=== PATIENT | male | born 1965 | race Caucasian/White ===

== ENCOUNTER 2024-10-28 14:17 | Emergency (ER) | payer SELFPAY ==
--- OUTSIDE RECORDS SUMMARY | 2024-10-28 14:20 | XMS REPORT | Continuity of Care Document ---
Author Name Unknown Address [address] [facility] Jose Miguel. [address] [place] [address] [facility] [place] [facility] [address] [facility] Jose Miguel. [address] [place] [address] Care Team Providers Care Kiln Transfer Operator Name Role Phone Prosper Renee Attending Clinician Unavailable López Attending Clinician Unavailable Prosper Renee Admitting Clinician Unavailable Physician, No Primary or Family Admitting Clinic george Unavailable López Admitting Clinician Unavailable Payers Payer Name Policy Type Policy Number Effective Date Expirati on Date Source Allergies, Adverse Reactions, Alerts Allergy Name Allergy Type Status Severity Reaction(s) Onset Date Inactive Date Treating Clinician Comments Source No Known Allergie s DA Active U 02-26 00:00: 00 [facility] No Known Allergie s DA Active U 02-26 00:00: 00 [facility] Procedures Procedure Date / Time Performed Performing Clinicia n Source [id number] 2021-02-27 00:00:00 [email or web address] [facility] Francie [facility] [place] [id number] 2021-02-27 00:00:00 [email or web address] [facility] Francie [facility] [place] [id number] 2021-02-27 00:00:00 [email or web address] [facility] Francie [facility] [place] [id number] 2021-02-27 00:00:00 ZAFNA.[email or web address] [facility] [place] Encounters Start Date/Time End Date/Time Encounter Type Admission Type Attending Clinicians Care Facility Care Department Encounter ID Source 2021-02-27 00:07:00 2021-02-28 22:00:00 Emergency EM Prosper Renee HCATB MED [id number] [facility] [place] 2021-02-27 11:16:00 2021-02-27 11:16:00 Outpatient Prosper Renee HCANW REF [id number] [facility] [address] 2020-09-19 11:07:00 2020-09-19 11:07:00 Outpatient Alvarez_R VFP VFP [id number] Results Test Description Test Time Test Comments Results Result Co mments Source COVID 19 Asymptomatic IH [id number] 23:44:00* Test Item Value Reference Range Interpretation Comme nts COVID 19 Asymptomatic IH AG (test code = COVNONPUIAG) NEGATIVE Negative NEGATIVE RESULTS SHOULD BE TREATED PRESUMPTIVE ANDCONFIRMED WTIH A MOLECULAR ASSAY, IF NECESSARY FOR PATIENTMANAGEMENT. NEGATIVE RESULTS DO NOT RULE OUT COVID-19 ANDSHOULD NOT BE USED THE SOLE BASIS FOR TREATMENT ORPATIENT MANAGEMENT DECISIONS, INCLUDING INFECTION CONTROLDECISIONS. NEGATIVE RESULTS SHOULD BE CONSIDERED IN THECONTEXT OF A PATIENT'S RECENT EXPOSURES, HISTORY AND THEPRESENCE OF CLINICAL SIGNS AND SYMPTOMS CONSISTENT WITHCOVID-19. - CT ABD PELVIS [id number] 23:10:00 [facility] : 1965 Sex: MPatient Name: BELÉN CHACON Unit No: [id number] EXAMS: CPT: [id number] CT ABD PELVIS W/CONT [address] CT ABDOMEN AND PELVIS WITH IV CONTRAST: CLINICAL HISTORY: Abdominal pain COMPARISON: None. TECHNIQUE: Axial CT imaging of the abdomen and pelvis was performed with IV contrast. Coronal and sagittal reformatted images are submitted. FINDINGS: The liver appears normal. The spleen appears normal. The pancreas has a normal appearance without mass or inflammation. The kidneys appear normal. No adrenal abnormalities are seen. Bowel loops are normal in caliber. There is no free fluid in the abdomen or pelvis. No free air is seen. There is no abdominal or retroperitoneal mass. The appendix is thickened with periappendiceal inflammation consistent with acute appendicitis. There is no evidence of perforation.. The abdominal aorta is normal in caliber. Osseous structures appear normal. The lung bases are clear. No pleural or pericardial effusion seen. IMPRESSION: Acute appendicitis. No evidence of perforation. COMMUNICATION: Findings conveyed to Dr. Patton by telephone at 11:00 PM. DLP: 431.84 mGy-cm IV Contrast: [address] dose optimization is achieved for this examination by the use of a CT protocol in accordance with ACR practice standards and adherence to chemistry associate's recommendations with automated exposure control. FOR INTERNAL CODING PURPOSES O NLY RESULT CODE: CVRMD at 2310 Reported and signed by: Artur Loving MD Name: BELÉN CHACON [facility] Emergency Dept [place]: [place] [id number] [facility] : 1965 Age: 55 Sex: [place] [address] Loc: YIFAN Exam Date: 02/26/2021 Status: REG PH: [phone] FAX: PAGE 1 Signed Report (CONTINUED) Patient Name: BELÉN CHACON Unit No: [id number] EXAMS: CPT: [id number] CT ABD PELVIS W/CONT 47104 (Continued) CC: Kun Patton MD Technologist: APOLA FLORES CTDI: 7.85 DLP: 431.84 Trscr Dt/Tm: 02/26/2021 (2310) by:[email or web address] Orig Print D/T: S: 02/26/2021 (2313) BATCH NO: N/A Name: BELÉN CHACON Emergency Dept [place]: [place] [id number] [facility] : 1965 Age: 55 Sex: [place] [address] Loc: YIFAN Exam Date: 02/26/2021 Status: REG ER PH: [phone] FAX: PAGE 2 Signed ReportURINALYSIS DIPSTICK [id number] 22:07:00* Test Item Value Reference Range Interpretation Comme nts UA COLOR (test code = COLU) Yellow YELLOW UA APPEARANCE (test code = APPU) Clear CLEAR UA GLUCOSE DIPSTICK (test code = DGLUU) NEGATIVE MG/AL NEGATIVE UA BILIRUBIN DIPSTICK (test code = BILU) NEGATIVE NEGATIVE UA KETONE DIPSTICK (test code = KETU) NEGATIVE MG/DL NEGATIVE UA SPECIFIC GRAVITY (test code = SGU) 1.020 1.000-1.030 UA BLOOD DIPSTICK (test code = CANDIDO) NEGATIVE NEGATIVE UA PH DIPSTICK (test code = REJI) 7.5 4.5-8.5 UA PROTEIN DIPSTICK (test code = PROU) NEGATIVE NEGATIVE UA UROBILINOGEN DIPSTICK (test code = URO) 2.0 EU/dL See_Comment A [Automated mymission2a ge] The system which generated this result transmitted reference range: <=1.0. The reference range was not used to interpret this result as normal/abnormal. UA NITRITE DIPSTICK (test code = SHANDA) NEGATIVE NEGATIVE UA LEUKOCYTE ESTERASE DIPSTICK (test code = LEUU) NEGATIVE NEGATIVE TROPONIN I [id number] 21:57:00* Test Item Value Reference Range Interpretation Comme nts TROPONIN I RAPID (test code = TROPIRAP) 0.01 ng/mL 0.00-0.08 N ISTAT TROPONIN I CRITERIA0.00-0.08 ng/mL - Negative>0.08 ng/mL - Positive The use of serial sampling and testing protocol is arecommended practice.An elevated troponin level alone is often not sufficient fordiagnosis of myocardial infarction. Troponin results obtained by different assays may vary.Evaluation of the extent of myocardial damage based onincrease of troponin would be valid only if similarmethodology is used. [id number] 21:40:00* Test Item Value Reference Range Interpretation Comme nts AMYLASE (test code = GEMA) 26 U/L 14-97 N COMPREHENSIVE METABOLIC [id number] 21:39:00* Test Item Value Reference Range Interpretation Comme nts SODIUM POC (test code = NAP) mmol/L 138-146 POTASSIUM POC (test code = KP) mmol/L 3.5-4.9 CHLORIDE POC (test code = CLP) mmol/L 98-109 N CO2 POC (test code = CO2P) mmol/L 24-29 GLUCOSE POC (test code = GLUP) MG/DL 70-105 BUN POC (test code = BUNP) mg/dL 8-26 N CREATININE POC (test code = CREATP) mg/dL 0.6-1.3 N GLOMERULAR FILTRATION RATE P OC (test code = GFRP) 100 >60 TOTAL PROTEIN (test code = PROT) g/dL 6.4-8.1 ALBUMIN (test code = ALB) g/dL 3.3-5.5 N CALCIUM (test code = CA) mg/dL 8.8-10.5 N BILIRUBIN TOTAL (test code = BILT) mg/dL 0.2-1.6 SGOT/AST (test code = AST) IU/L 11-38 N SGPT/ALT (test code = ALT) IU/L 10-47 N ALKALINE PHOSPHATASE (test c ode = ALKP) IU/L 42-141 H COMPREHENSIVE METABOLIC [id number] 21:39:00* Test Item Value Reference Range Interpretation Comme nts SODIUM POC (test code = NAP) 137 mmol/L 138-146 L POTASSIUM POC (test code = KP) 4.2 mmol/L 3.5-4.9 N CHLORIDE POC (test code = CLP) 107 mmol/L 98-109 N CO2 POC (test code = CO2P) 30 mmol/L 24-29 H GLUCOSE POC (test code = GLUP) 145 MG/DL 70-105 H BUN POC (test code = BUNP) 15 mg/dL 8-26 N CREATININE POC (test code = CREATP) 0.8 mg/dL 0.6-1.3 N GLOMERULAR FILTRATION RATE P OC (test code = GFRP) 100 >60 TOTAL PROTEIN (test code = PROT) 7.3 g/dL 6.4-8.1 N ALBUMIN (test code = ALB) 4.0 g/dL 3.3-5.5 N CALCIUM (test code = CA) 9.1 mg/dL 8.8-10.5 N BILIRUBIN TOTAL (test code = BILT) 0.7 mg/dL 0.2-1.6 N SGOT/AST (test code = AST) 25 IU/L 11-38 N SGPT/ALT (test code = ALT) 26 IU/L 10-47 N ALKALINE PHOSPHATASE (test c ode = ALKP) 142 IU/L 42-141 H CBC W/AUTO [id number] 21:28:00* Test Item Value Reference Range Interpretation Comme nts WHITE BLOOD CELL (test code = WBC) 17.9 x10 3/u 4.8-10.8 H RED BLOOD CELL (test code = RBC) 4.76 x10 6/uL 4.70-6.10 N HEMOGLOBIN (test code = HGB) 14.8 g/dL 13.0-17.0 N HEMATOCRIT (test code = HCT) 43.8 % 42.0-52.0 N MEAN CELL VOLUME (test code = MCV) 92 fL 80-99 N MEAN CELL HGB (test code = MCH) 31.1 pg 27.0-31.0 H MEAN CELL HGB CONCENTRATION (test code = MCHC) 33.8 g/dL 33.0-37.0 N RED CELL DISTRIBUTION WIDTH (test code = RDW) 13.0 % 11.5-14.5 N PLATELET COUNT (test code = PLT) 256 x10 3/uL 130-400 N MEAN PLATELET VOLUME (test code = MPV) 9.2 fL 9.4-12.4 L NEUTROPHIL % (test code = NT%) 88.4 % 37.0-80.0 H LYMPHOCYTE % (test code = LY%) 5.8 % 10.0-50.0 L MIXED % (test code = MX%) 5.8 % 0.0-11.0 N The Mixed Cell percent and Mixed Cell absolute numberinclude monocytes, eosinophils and basophils. NEUTROPHIL # (test code = NT#) 15.9 x10 3/uL 2.0-6.9 H LYMPHOCYTE # (test code = LY#) 1.0 x10 3/uL 0.9-4.1 N MIXED # (test code = MX#) 1.0 10e3/mm3 0.2-1.1 N Notes Date/Time Note Provider Source 2021-02-27 09:01:00 [id number] [place] [address] PATIENT NAME: BELÉN CHACON ADMIT DATE: 02/27/21 ACCOUNT NO: [id number] ROOM NO: T.[facility] AGE: 55 REPORT TYPE: OPERATIVE REPORT SEX: M ADMITTING PHYSICIAN: Prosper Renee MD ATTENDING PHYSICIAN: Prosper Renee MD OPERATION DATE: 02/27/2021 PREOPERATIVE DIAGNOSIS: Acute appendicitis. POSTOPERATIVE DIAGNOSES: Acute appendicitis and ventral hernia and a right groin infection. PROCEDURE: Laparoscopic appendectomy and laparoscopic ventral hernia repair and an I and D and debridement of right groin infection. SURGEON: Geoffrey Nunez MD SENIOR RISK MANAGER: ANESTHESIA: General endotracheal. ESTIMATED BLOOD LOSS: Approximately 10 mL. SPECIMEN: Appendix and cultures and debrided tissue. POSTOPERATIVE CONDITION: Stable. PROCEDURE IN DETAIL: The patient was brought in the operating room and placed in supine position. The anterior abdominal wall was prepped with chlorhexidine and draped in sterile fashion. A Veress needle was inserted in the left lower quadrant. Abdomen was insufflated to 15 mmHg pressure. Once this was done, the Veress needle was removed and 5-mm trocar was inserted in the same site. A camera was inserted in the abdomen. The patient noted to have a ventral hernia, so I inserted a 12-mm trocar superior to the umbilicus. This was followed by insertion of 5-mm suprapubic trocar. The patient was placed in the Trendelenburg position with the right side up. The patient had some unusual amount of lower abdominal adhesions, this involved the sigmoid colon and the anterior abdominal wall and also the terminal ileum and the anterior abdominal wall making exposure to the cecum difficult. I placed another 5-mm trocar in the right lower quadrant. I had to dissect around the cecum. The patient had a retrocecal appendix as well which further made things difficult and the patient was morbidly obese. Once the appendix was isolated and identified, I had to find the tip, I found the tip and then was able to dissect the mesoappendix with a Harmonic scalpel. Once the base of the appendix was isolated, it was then divided with an Endo-TIFFANY stapler, placed in a specimen bag and removed through the umbilical wound. It should be noted that very early in the case, I saw an PATIENT NAME: BELÉN CHACON area that looked like the appendix and I stapled this; however, this just ended up being a large piece of epiploic fat. After removing the appendix, the right lower quadrant was irrigated and suctioned. The omentum was brought down the right lower quadrant. The fascia of the trocar site was closed with 0 Vicryl stitch with help of a suture passer. I then made a separate incision directly over the hernia defect with #11 blade scalpel. I closed the defect with a #1 Ethibond stitch with help of a suture passer. After this was done, gas turned off and evacuated from the abdomen. Trocars removed. Wounds were irrigated with Betadine and closed with 3-0 Monocryl subcuticular stitches and dressed with Steri-Strips, 2 x 2's, and tape. I then performed an I and D with #11 blade scalpel at the right groin abscess. I debrided the edges with electrocautery. Cultures were taken. Bleeding and oozing was controlled with electrocautery. Wound was irrigated with a combination of Betadine, peroxide and packed with half-inch packing soaked in Betadine, peroxide; dressed with 4 x 4's and tape. The patient was brought to the recovery room in stable condition having tolerated his procedure well. Dictated By: Geoffrey Nunez MD WT: OP:GRICELDA/SHANNONSEREG Conf#: [id number]/DID#: [id number] Authenticated by Geoffrey Nunez MD On 03/18/2021 11:09:21 AM at 1109 PATIENT NAME: BELÉN CHACON [facility] 2021-02-26 21:20:00 [facility] EMERGENCY PROVIDER REPORT REPORT#:[id number] REPORT STATUS: Signed DATE:02/26/21 TIME: 2119 PATIENT: BELÉN CHACON UNIT #: [id number] ROOM: [facility] BED: A AGE: 55 SEX: M PCP PHYS: Prosper Renee MD SERVICE AUTHOR: Kun Patton MD * ALL edits or amendments must be made on the electronic/computer document * HPI-Abd Pain M 40 and Over General Confirmed Patient Yes Patient Type New patient Initial Greet Date/Time 02/26/212100 Presentation Chief Complaint Abdominal pain Hx Obtained From Patient Sudden in Onset? No Onset Occurred Today Symptom Duration Waxes and wanes Progression since Onset Waxes and wanes Caused by No trauma by history Location Epigastric, Periumbilical Quality Cramping Migration/Movement None Severity: Current Pain level 8 out of 10 Free Text HPI Notes Free Text HPI Notes 55-year-old male patient smokes approximately 1-1/2 packs of cigarettes a day. Patient states he ate a hotdog around 1230 this afternoon complaining of mid and periumbilical pain which started around 1 in the afternoon. Patient states he described the pain is severe. No black or bloody stool. No chest pain no shortness of breath. Risk-Abd Pain M 40 and Over )( Abdominal Aortic Aneurysm Risk factors reviewed, Risk factors N/A Review of Systems ROS Statements All systems rev neg except as marked. Complete sys rev neg except as marked. Focused Review of Systems Constitutional Denies: Chills, Fatigue, Fever, Lethargy, Malaise, Recent wt loss, Weakness - generalized. Respiratory Denies: Cough, non-productive, Cough, productive, Dyspnea on exertion, Hemoptysis, Parox nocturnal dyspnea, Pleuritic pain, Shortness of breath, Wheezing. Cardiovascular Denies: Chest pain, Dyspnea on exertion, Edema, Orthopnea, Palpitations, Parox nocturnal dyspnea, Syncope. GI Reports: Abdominal pain. Denies: Anorexia, Belching, Bloody/tarry stool, Constipation, Diarrhea, Dysphagia, Hematemesis, Hematochezia, Mucousy stool, Melena, Nausea, Rectal pain, Vomiting. Musculoskeletal Denies: Back pain, Extremity pain, Extremity swelling, Joint pain, Joint swelling, Lumbar pain, Myalgia, Neck pain, Thoracic pain. Past Medical History - Adult Stated Complaint ABDOMINAL PAIN Allergies Coded Allergies: No Known Allergies (02/26/21) Past Medical History: Reports: Hypertension. Smoking status: Smoking status for patients 13 years old or older: Current every day smoker Packs per day: 1.5 Physical Exam Vital Signs Vital Signs First Documented: Result Date Time Pulse Ox 97 02/26 2113 B/P 220/92 02/26 2113 B/P Mean 134 02/26 2113 O2 Delivery Room air 02/26 2113 Temp 36.8 02/26 2113 Pulse 72 02/26 2113 Resp 20 02/26 2113 Last Documented: Result Date Time Pulse Ox 100 02/26 2342 B/P 199/91 02/26 2342 B/P Mean 127 02/26 2342 O2 Delivery Room air 02/26 2342 Temp 36.7 02/26 2342 Pulse 78 02/26 2342 Resp 18 02/26 2342 Review of Vital Signs Reviewed Basic Physical Exam Basic PE HEAD: Atraumatic/NC, EYES: PERRL, conj clear, ENT: Membranes moist, NECK: Supple Focused PE General/Const General/Const Awake Distress/Hydration Distress moderate. MS Head Head Normocephalic Eyes Eyes Atraumatic, PERRL, EOMI, No nystagmus Ears/Nose/Throat Ears/Nose/Throat Airway patent, Mucous membranes moist Resp/Chest Respiratory/Chest Atraumatic, Breath sounds NL, Breath sounds = bilat, No respiratory distress, No rales Cardiovascular Cardiovascular Heart rate NL, Regular rhythm, Heart sounds NL, No gallop, No murmurs, No rubs Abdomen/GI Abdomen/GI Atraumatic, Soft, Non-tender, McBurney's non-tender, No guarding, No rebound, BS normoactive Tenderness/Guarding/Rebound Tender periumbilical. MS Back Back Atraumatic, Inspection NL, Full range of motion, Painless range of motion, Non-tender, No midline vertebral tend Skin Skin Atraumatic, Color NL, No rash, Warm, Dry Neurologic Neurologic Oriented X3, Speech NL, No motor deficits, No sensory deficits, CN II - XII intact, Reflexes equal bilat Interpretation Diagnostics Lab Results Interpretation Results Laboratory Tests 02/26/212123: [Embedded Image Not Available] Laboratory Tests: 02/26 Chemistry POC Sodium (138 - 146 mmol/L) 137 L POC Potassium (3.5 - 4.9 mmol/L) 4.2 POC Chloride (98 - 109 mmol/L) 107 POC Total CO2 (24 - 29 mmol/L) 30 H POC BUN (8 - 26 mg/dL) 15 POC Creatinine (0.6 - 1.3 mg/dL) 0.8 Estimated GFR (MDRD) (>60) 100 POC Glucose (70 - 105 MG/DL) 145 H Calcium (8.8 - 10.5 mg/dL) 9.1 Total Bilirubin (0.2 - 1.6 mg/dL) 0.7 AST (11 - 38 IU/L) 25 ALT (10 - 47 IU/L) 26 Total Alk Phosphatase (42 - 141 IU/L) 142 H Rapid Troponin I (0.00 - 0.08 ng/mL) 0.01 Total Protein (6.4 - 8.1 g/dL) 7.3 Albumin (3.3 - 5.5 g/dL) 4.0 Amylase (14 - 97 U/L) 26 Hematology WBC (4.8 - 10.8 x10 3/u) 17.9 H RBC (4.70 - 6.10 x10 6/uL) 4.76 Hgb (13.0 - 17.0 g/dL) 14.8 Hct (42.0 - 52.0 %) 43.8 MCV (80 - 99 fL) 92 MCH (27.0 - 31.0 pg) 31.1 H MCHC (33.0 - 37.0 g/dL) 33.8 RDW (11.5 - 14.5 %) 13.0 Plt Count (130 - 400 x10 3/uL) 256 MPV (9.4 - 12.4 fL) 9.2 L Neut % (Auto) (37.0 - 80.0 %) 88.4 H Lymph % (Auto) (10.0 - 50.0 %) 5.8 L Mixed Cells % (Auto) (0.0 - 11.0 %) 5.8 Neut # (Auto) (2.0 - 6.9 x10 3/uL) 15.9 H Lymph # (Auto) (0.9 - 4.1 x10 3/uL) 1.0 Mixed Cells # (0.2 - 1.1 10e3/mm3) 1.0 Urines Urine Color (YELLOW) Yellow Urine Appearance (CLEAR) Clear Urine pH (4.5 - 8.5) 7.5 Ur Specific [place] (1.000 - 1.030) 1.020 Urine Protein (NEGATIVE) NEGATIVE Urine Glucose (UA) (NEGATIVE MG/AL) NEGATIVE Urine Ketones (NEGATIVE MG/DL) NEGATIVE Urine Blood (NEGATIVE) NEGATIVE Urine Nitrite (NEGATIVE) NEGATIVE Urine Bilirubin (NEGATIVE) NEGATIVE Urine Urobilinogen (<=1.0 EU/dL) 2.0 H Ur Leukocyte Esterase (NEGATIVE) NEGATIVE 02/26 2323 Serology SARS-CoV-2 Ag (Rapid) (Negative) NEGATIVE Recent Impressions: CAT SCAN - CT ABD PELVIS W/CONT 02/26 2230 Report Impression - Status: SIGNED Entered: 02/26/20212312 IMPRESSION: Acute appendicitis. No evidence of perforation. COMMUNICATION: Findings conveyed to Dr. Patton by telephone at 11:00 PM. DLP: 431.84 mGy-cm IV Contrast: [address] dose optimization is achieved for this examination by the use of a CT protocol in accordance with ACR practice standards and adherence to chemistry associate's recommendations with automated exposure control. FOR INTERNAL CODING PURPOSES ONLY RESULT CODE: CVRMD Impression By: [email or web address] - Artur Loving MD Lab Statement Laboratory studies reviewed and considered in the medical decision-making. Imaging Statement Radiographic studies reviewed and considered in the medical decision-making. Lab Imaging Statement Laboratory radiographic studies reviewed and considered in the medical decision-making. ECG #1 Interpretation Text/Dict Note NSR, no acute ST elevations or depressions ECG Documented in MUSE Yes Date 02/26/21 Time 2130 Interpreted by and reviewed by me, ED physician NL ECG Interpretation Normal rate, Normal sinus rhythm, No acute ischemic changes, No STEMI, Normal QRS, Normal ST waves, Normal T waves, Normal axis, Normal intervals Re-Evaluation MDM )( Re-Evaluation/Progress #1 )( Re-Eval Status Improved ED Course Medication(s) Ordered Medication(s) Ordered: Anti-Infective Agents Sig/Didier Start time Last Medication Dose Route Stop Time Status Admin Piperacillin Sod/ 3.375 GM Q6HR 02/27 0000 DC Tazobactam Sod IV 03/06 2359 Sodium Chloride 100 ML Piperacillin Sod/ 3.375 GM X1ED STA 02/26 2307 DC 02/26 Tazobactam Sod IV 02/26 2336 2315 Sodium Chloride 100 ML Central Nervous System Agents Sig/Didier Start time Last Medication Dose Route Stop Time Status Admin Acetaminophen 650 MG Q4H PRN PRN 02/27 0010 AC PO 02/27 2357 Acetaminophen/ 2 TAB X1ED STA 02/26 2202 DC 02/26 Codeine Phosphate PO 02/26 Morphine Sulfate 4 MG X1ED STA 02/26 2119 DC 02/26 IV 02/27 2120 212 Diagnostic Agents Sig/Didier Start time Last Medication Dose Route Stop Time Status Admin Iopamidol 100 ML .STK-MED ONE 02/26 2357 DC 02/26 IV 02/26 2358 2357 Electrolytic, Caloric, And Dick Sig/Didier Start time Last Medication Dose Route Stop Time Status Admin Sodium Chloride 1,000 ML .Q8H 02/27 0010 AC IV 02/27 2357 Sodium Chloride 100 ML .STK-MED ONE 02/26 2357 DC 02/26 IV 02/26 2358 2357 Sodium Chloride 1,000 ML X1ED STA 02/26 2320 DC 02/26 IV 02/26 232 2325 Gastrointestinal Drugs Sig/Didier Start time Last Medication Dose Route Stop Time Status Admin Ondansetron HCl 4 MG Q4H PRN PRN 02/27 0010 AC IV 02/27 235 Famotidine 20 MG X1ED STA 02/26 2119 AC 02/26 Sodium Chloride 10 ML IV 02/27 Ondansetron HCl 4 MG X1ED STA 02/26 2119 DC 02/26 IV 02/26 Patient Discharge Departure Vital Signs/Condition Vital Signs First Documented: Result Date Time Pulse Ox 97 02/26 2113 B/P 220/92 02/26 2113 B/P Mean 134 02/26 2113 O2 Delivery Room air 02/26 2113 Temp 36.8 02/26 2113 Pulse 72 02/26 2113 Resp 20 02/26 2113 Last Documented: Result Date Time Pulse Ox 100 02/26 2342 B/P 199/91 02/26 2342 B/P Mean 127 02/26 2342 O2 Delivery Room air 02/26 2342 Temp 36.7 02/26 2342 Pulse 78 02/26 2342 Resp 18 02/26 2342 All vital signs available at the time of this entry have been reviewed. Condition Stable, Improved Clinical Impression Clinical Impression Primary Impression: Acute appendicitis Time of Impression 2312 Disposition Decision Admit Admit Physician Name Prosper Renee MD Admit Physician Primary Care Physician Request Time 2329 Request Date 02/26/21 )( Admission Accepts Yes )( Accepted Time 2345 )( Accepted Date 02/26/21 Call Information will see patient Discharge/Care Plan Counseled Regarding Diagnosis, Lab results, Imaging studies, Need for admission (Auto) Prescriptions Current Visit Scripts Hydrocodone/Apap ([place] 5/325) 1 TAB PO Q4H PRN Pain Hydrocodone/Apap ([place] 5/325) 1 TAB PO Q4H PRN Pain #30 TAB Sulfamethoxazole/Tmp (Bactrim Ds 800/160 Mg) 1 TAB PO Q12H Sulfamethoxazole/Tmp (Bactrim Ds 800/160 Mg) 1 TAB PO Q12H #20 TAB at 0627 [facility] #:[id number] END OF REPORT [facility]
[2024-10-28] MEDS ORDERED: LIDOCAINE 2% INJ, 20 mL 0 ML ONE (16:26)
[2024-10-28] MEDS ORDERED: LIDOCAINE 2% W/EPI 1:200,000 MPF 20 ML VIAL IM ONE (16:33)
--- NOTE | 2024-10-28 17:23 | EDPHYS ---
Physician Documentation [facility] Name: Eran Felix Age: 59 yrs Sex: Male : 1965 Arrival Date: 10/28/2024 Time: 14:17 Bed 12 Private MD: ED Physician Alexis Wiley HPI: 10/28 15:00 This 59 yrs old Male presents to ER via Ambulatory with complaints of Cyst. cp 15:00 The patient or guardian complains of cyst. cp 15:00 The complaints affect the right tricep. Onset: The symptoms/episode began/occurred cp gradually. Associated signs and symptoms: Pertinent positives: pain, swelling, warmth, purulent drainage and erythema, Pertinent negatives: fever. Severity of symptoms: in the emergency department the symptoms have improved, mildly. Historical: - Allergies: 14:46 No Known Allergies; ld1 - Home Meds: 14:46 None [Active]; ld1 - PMHx: 14:46 None; ld1 - PSHx: 14:46 Appendectomy; ld1 - Immunization history:: Adult Immunizations up to date. - Infectious Disease History:: Denies. - Social history:: Smoking status: Patient reports the use of cigarette tobacco products, smokes one-half pack cigarettes per day. ROS: 15:05 Skin: Positive for of the right tricep, cyst, cp 15:05 Constitutional: Negative for body aches, chills, fever, poor PO intake, cp 15:05 Cardiovascular: Negative for chest pain, 15:05 Respiratory: Negative for cough, shortness of breath, wheezing, 15:05 Abdomen/GI: Negative for abdominal pain, vomiting, diarrhea, constipation, 15:05 Neuro: Negative for altered mental status, numbness, weakness, 15:05 All other systems are negative, Exam: 15:10 Constitutional: The patient appears in no acute distress, alert, awake, non-toxic, well cp developed, well nourished, 15:10 Head/Face: Normocephalic, atraumatic. cp 15:10 Chest/axilla: Inspection: normal, 15:10 Cardiovascular: Rate: normal, 15:10 Respiratory: the patient does not display signs of respiratory distress, Respirations: normal, no retractions, labored breathing, is not present, Breath sounds: are clear throughout, no decreased breath sounds, no stridor, no wheezing, 15:10 Abdomen/GI: Inspection: abdomen appears normal, 15:10 Musculoskeletal/extremity: Extremities: noted in the right tricep: 1.5 cm opening with mild purulent drainage, mild surrounding erythema, ROM: full active range of motion, in the right arm, Pulses: noted to be 2+ in the right radial artery, the right arm Sensation intact. 15:10 Neuro: Orientation: to person, place \T\ time. Mentation: is normal, Motor: moves all fours, strength is normal, Vital Signs: 14:47 BP 155 / 79; Pulse 62; Resp 18; Temp 98.3(TE); Pulse Ox 97% on R/A; Weight 67.13 kg; ld1 Height 6 ft. 1 in. ; Pain 3/10; 14:47 Body Mass Index 19.53 (67.13 kg, 185.42 cm) ld1 14:47 Pain Scale: Adult ld1 Procedures: 17:20 I \T\ D: Incision and drainage was performed for an abscess of the right tricep Prepped cp with Betadine, Anesthetized with ml's 2% Lidocaine with epinephrine. 6 ml's 2% Lidocaine with epinephrine. Drained small amount purulent fluid. Packed with iodoform gauze, Dressing: sterile 4x4 gauze, the patient tolerated the procedure well, curved hemostats used to explore cyst. MDM: 14:53 Medical Screening Exam initiated cp 17:22 Data reviewed: vital signs, nurses notes, and as a result, I will discharge patient. cp 17:22 Differential diagnosis: abscess, cyst, cellulitis. I considered the following discharge cp prescriptions or medication management in the emergency department Medications were administered in the Emergency Department. See MAR. Counseling: I had a detailed discussion with the patient and/or guardian regarding the historical points, exam findings, and any diagnostic results supporting the discharge/admit diagnosis, the need for outpatient follow up, a general surgeon, to return to the emergency department if symptoms worsen or persist or if there are any questions or concerns that arise at home. Response to treatment: the patient's symptoms have mildly improved after treatment, and as a result, I will discharge patient. 10/28 14:47 Order name: I\T\D Setup; Complete Time: 16:31 cp 10/28 17:20 Order name: Wound dressing; Complete Time: 17:39 cp Administered Medications: 16:40 Drug: Lidocaine Infiltration (2 %) 20 ml Infiltration once; with epinephrine Route: hb Infiltration; 17:39 Follow up: Response: No adverse reaction hb Disposition: 10/29 16:54 Chart complete. cp Disposition Summary: 10/28/24 17:22 Discharge Ordered Notes: Location: Home cp Problem: new cp Symptoms: have improved cp Condition: Stable cp Diagnosis - Epidermal cyst - right upper arm cp - Cellulitis of right upper limb cp Followup: cp - With: Willem Sliva MD - When: 2 - 3 days - Reason: Wound Recheck Discharge Instructions: - Discharge Summary Sheet cp - Cellulitis, Adult cp - Epidermoid Cyst Removal cp Forms: - Medication Reconciliation Form cp - Antibiotic Education cp - Prescription Opioid Use cp - Patient Portal Instructions cp - Leadership Thank You Letter cp Prescriptions: - Doxycycline Monohydrate 100 mg Oral Tablet - take 1 tablet ORAL route every 12 hours for 10 days; 20 tablet; Refills: 0, cp Product Selection Permitted Signatures: Louie Lehman PA PA cp Romana Puente RN RN Liliana Antonio RN RN ld1 Corrections: (The following items were deleted from the chart) 16:53 10/28 17:50 I \T\ D: Incision and drainage was performed for an abscess of the right cp tricep Prepped with Betadine, Anesthetized with ml's 2% Lidocaine with epinephrine. 6 ml's 2% Lidocaine with epinephrine. Drained small amount purulent fluid. Packed with iodoform gauze, Dressing: sterile 4x4 gauze, the patient tolerated the procedure well, curved hemostats used to explore cyst. cp
--- NOTE | 2024-10-28 17:23 | ER ---
Nurse's Notes [facility] Name: Eran Felix Age: 59 yrs Sex: Male : 1965 Arrival Date: 10/28/2024 Time: 14:17 Bed 12 Private MD: Diagnosis: Epidermal cyst-right upper arm;Cellulitis of right upper limb Presentation: 10/28 14:47 Chief complaint: Patient states: Abscess to back of right upper arm - open and ld1 draining. Coronavirus screen: At this time, the client does not indicate any symptoms associated with coronavirus-19. Ebola Screen: No symptoms or risks identified at this time. Initial Sepsis Screen: Does the patient meet any 2 criteria? No. Patient's initial sepsis screen is negative. Does the patient have a suspected source of infection? No. Patient's initial sepsis screen is negative. Risk Assessment: Do you want to hurt yourself or someone else? Patient reports no desire to harm self or others. Onset of symptoms was October 28, 2024. 14:47 Method Of Arrival: Ambulatory ld1 14:47 Acuity: CHANNING 3 ld1 Triage Assessment: 14:46 General: Appears in no apparent distress. comfortable, Behavior is calm, cooperative, ld1 appropriate for age. Pain: Complains of pain in posterior aspect of right shoulder and right tricep Pain does not radiate. Pain currently is 8 out of 10 on a pain scale. Quality of pain is described as throbbing, Pain began suddenly. EENT: No signs and/or symptoms were reported regarding the EENT system. Neuro: Level of Consciousness is awake, alert, obeys commands, Oriented to person, place, time, situation. Cardiovascular: Capillary refill < 3 seconds Patient's skin is warm and dry. Respiratory: Airway is patent Respiratory effort is even, unlabored. GI: Abdomen is round non-distended. : No signs and/or symptoms were reported regarding the genitourinary system. Derm: No signs and/or symptoms reported regarding the dermatologic system. Musculoskeletal: No signs and/or symptoms reported regarding the musculoskeletal system. Historical: - Allergies: 14:46 No Known Allergies; ld1 - Home Meds: 14:46 None [Active]; ld1 - PMHx: 14:46 None; ld1 - PSHx: 14:46 Appendectomy; ld1 - Immunization history:: Adult Immunizations up to date. - Infectious Disease History:: Denies. - Social history:: Smoking status: Patient reports the use of cigarette tobacco products, smokes one-half pack cigarettes per day. Screenin:03 [facility] [place] ED Fall Risk Assessment (Adult) History of falling in the last 3 months, hb including since admission No falls in past 3 months (0 pts) Confusion or Disorientation No (0 pts) Intoxicated or Sedated No (0 pts) Impaired Gait No (0 pts) Mobility Assist Device Used No (0 pt) Altered Elimination No (0 pt) Score/Fall Risk Level 0 - 2 = Low Risk Oriented to surroundings, Maintained a safe environment, Educated pt \T\ family on fall prevention, incl call for assistance when getting out of bed. Abuse screen: Denies threats or abuse. Denies injuries from another. Nutritional screening: No deficits noted. Tuberculosis screening: No symptoms or risk factors identified. Assessment: 17:03 General: Appears in no apparent distress. Behavior is calm, cooperative. Neuro: Level hb of Consciousness is awake, alert, obeys commands, Oriented to person, place, time, situation. Cardiovascular: Patient's skin is warm and dry. Respiratory: Respiratory effort is even, unlabored, Respiratory pattern is regular, agonal. Vital Signs: 14:47 BP 155 / 79; Pulse 62; Resp 18; Temp 98.3(TE); Pulse Ox 97% on R/A; Weight 67.13 kg; ld1 Height 6 ft. 1 in. ; Pain 3/10; 14:47 Body Mass Index 19.53 (67.13 kg, 185.42 cm) ld1 14:47 Pain Scale: Adult ld1 ED Course: 14:20 Patient arrived in ED. mr 14:21 Louie Lehman PA is PHCP. cp 14:21 Alexis Wiley MD is Attending Physician. cp 14:46 Arm band placed on right wrist. ld1 14:48 Triage completed. ld1 17:03 Romana Puente, RN is Primary Nurse. hb 17:03 Patient has correct armband on for positive identification. Bed in low position. Call hb light in reach. Provided Education on: USE OF CALL LIGHT . 17:04 No provider procedures requiring assistance completed. Patient did not have IV access hb during this emergency room visit. 17:20 Willem Silva MD is Referral Physician. cp Administered Medications: 16:40 Drug: Lidocaine Infiltration (2 %) 20 ml Infiltration once; with epinephrine Route: hb Infiltration; 17:39 Follow up: Response: No adverse reaction hb Medication: 17:03 VIS not applicable for this client. hb Outcome: 17:22 Discharge ordered by MD. cp 17:40 Discharged to home ambulatory, hb 17:40 Condition: stable 17:40 Discharge instructions given to patient, Instructed on discharge instructions, follow up and referral plans. medication usage, wound care, Demonstrated understanding of instructions, follow-up care, medications, wound care, Prescriptions given X 1, 17:40 Patient left the ED. hb Signatures: Susy Sher, Pablo Reg mr Louie Lehman PA PA cp Romana Puente, RN RN Liliana Antonio RN RN ld1
[2024-10-28 18:01] VITALS: BP 155/79; TEMP 98.3; O2SAT 97
== END 2024-10-28 17:40 | disposition home or self-care (01) ==
LOC: ER 14:17
PROC: 0H9BXZZ Drainage of Right Upper Arm Skin, External Approach (ICD-10-PCS; principal; 2024-10-28)
DX: L72.0 Epidermal cyst (principal); L03.113 Cellulitis of right upper limb
CPT/HCPCS: 99283